=== PATIENT | female | born 1990 | race Caucasian/White ===

== ENCOUNTER 2018-07-29 06:38 | Day surgery (SDC) | payer OTHER ==
[2018-07-27 10:43] LABS: HEMOGLOBIN 12.9 g/dL (12.0-16.0); MEAN CORPUSCULAR HEMOGLOBIN 30 pg (27-31); MEAN CORPUSCULAR HGB CONC 33 g/dL (33-37); MONOCYTES # (AUTO) 0.5 K/uL (0.8-1.0); MONOCYTES % (AUTO) 7.5 % (1.7-9.3)
[2018-07-27 11:11] LABS: BASOPHILS % (AUTO) 0.6 % (0.0-2.0); EOSINOPHILS % (AUTO) 0.7 % (0.0-4.0); LYMPHOCYTES % (AUTO) 28.5 % (20.5-51.1); NEUTROPHILS # (AUTO) 4.4 K/uL (1.8-7.7); NEUTROPHILS % (AUTO) 62.7 % (42.2-75.2); PLATELET COUNT (AUTO) 270 K/uL (140-450); RED BLOOD CELL COUNT(AUTO) 4.33 MIL/uL (4.20-5.40); RED CELL DISTRIBUTION WIDTH 13.4 % (11.6-13.7)
[2018-07-27 11:29] LABS: ANION GAP 17.2 (8-16); CARBON DIOXIDE 23.8 mmol/L (21-32); TOTAL BILIRUBIN 0.6 mg/dL (0.0-1.0)
[~2018-07-29] VITALS: Ht 157.5 cm; Wt 47.6 kg
[2018-07-29] MEDS ORDERED: MIDAZOLAM 2 MG/2 ML VIAL ONE (08:20)
[2018-07-29] MEDS ORDERED: fentaNYL 0.05 MG/ML VIAL ONE (08:20)
[2018-07-29] MEDS ORDERED: LIDOCAINE/EPI 2% 1:100000 20 ML VIAL INJ ONE (08:30)
[2018-07-29] MEDS ORDERED: LACTATED RINGERS 1,000 ML IV SCH (08:32)
[2018-07-29] MEDS ORDERED: MEPERIDINE 25 MG/ML SYR IVP PRN (08:35)
[2018-07-29] MEDS ORDERED: HYDROmorphone 1 MG/ML AMP IVP PRN (08:35)
[2018-07-29] MEDS ORDERED: ONDANSETRON 4 MG/2 ML VIAL IVP PRN (08:35)
[2018-07-29] MEDS ORDERED: diphenhydrAMINE 50 MG/ML VIAL IVP PRN (08:35)
== END 2018-07-29 09:50 | disposition home or self-care (01) ==
LOC: MMU 06:38 → MDS 06:38
PROVIDERS: ATTEND Internal Medicine Gastroenterology
DX: K92.0 Hematemesis (principal); G43.909 Migraine, unspecified, not intractable, without status migrainosus; Z88.8 Allergy status to other drugs, medicaments and biological substances; Z88.6 Allergy status to analgesic agent; Z91.040 Latex allergy status; Z79.899 Other long term (current) drug therapy; Z91.048 Other nonmedicinal substance allergy status; Z90.49 Acquired absence of other specified parts of digestive tract; Z98.890 Other specified postprocedural states; F43.10 Post-traumatic stress disorder, unspecified; R10.30 Lower abdominal pain, unspecified; K62.5 Hemorrhage of anus and rectum; R56.9 Unspecified convulsions; Z86.73 Personal history of transient ischemic attack (TIA), and cerebral infarction without residual deficits; M79.7 Fibromyalgia
CPT/HCPCS: 36415; 43235; 45378; 71045; 80053; 84703; 85025; J2001; J2250; J3010; J7030; J7120